=== PATIENT | male | born 1985 | race Caucasian/White ===

== ENCOUNTER 2025-11-05 20:14 | Emergency (ER) | payer OTHER, SELFPAY ==
[2025-11-05 20:21] VITALS: BP 144/96; PULSE 109; RESP 18; TEMP 36.5; O2SAT 95; BMI 33.8
--- NOTE | 2025-11-06 02:04 | ED.BURNSMOKE ---
HPI - Burn/Smoke Inhalation General Chief complaint: Burn/Smoke Inhalation Stated complaint: Hot water spilled on Lt side of head Time Seen by Provider: 11/06/25 01:36 Source: patient Mode of arrival: Ambulatory History of Present Illness HPI Narrative: 40-year-old gentleman no significant medical history was at work today reaching down for some tools in a drawer underneath a soup pot with boiling water underneath it. The soup in the water tipped over and landed on his left ear. He felt bit of fluid go into his ear. Immediately stood up rinse the entire area with cool water. Actually finished his shift and then came to the emergency department for further evaluation. He states that it hurts slightly but isn't interested in any type of pain medication. He said he heard some crackly noises in his ear initially but otherwise is doing well. Related Data Home Medications ?Medication ?Instructions ?Recorded ?Confirmed multivitamin (Multiple Vitamins 1 tab PO QDAY ##0 10/16/17 01/23/22 tablet) Previous Rx's ?Medication ?Instructions ?Recorded clotrimazole 1 % topical cream 1 applic topical BID #90 grams 01/23/22 (Antifungal (clotrimazole)) Allergies Allergy/AdvReac Type Severity Reaction Status Date / Time TIDE Allergy Mild UNKNOWN Uncoded 02/19/18 13:03 Bee Venom Allergy Unknown UNKNOWN Uncoded 02/19/18 13:03 Review of Systems Review of Systems Narrative: Pertinent positive and negative findings as per HPI Patient History Family History Sister Age: 42 Mental health problem Smoking Status: Never smoker Exam Initial Vital Signs Initial Vital Signs: Vital Signs Temperature 97.7 F 11/05/25 20:21 Pulse Rate 109 H 11/05/25 20:21 Respiratory Rate 18 11/05/25 20:21 Blood Pressure 144/96 H 11/05/25 20:21 Pulse Oximetry 95 11/05/25 20:21 Oxygen Delivery Method Room Air 11/05/25 20:21 General: Alert appropriate in no acute distress HEENT: Left ear has superficial bates difficult to tell if there 1st or 2nd degree at this point on the upper posterior part of the helix. There is some on the inner helix and just under the tragus. There is no significant erythema into the internal canal and the tympanic membrane is completely normal. No other skin of the head or neck is involved Respiratory: Able to speak in full sentences, no obvious respiratory distress Skin: No obvious rashes, warm and dry Neurologic: Grossly intact no obvious asymmetries or abnormalities Psych: appropriate insight and affect, cooperative Course Vital Signs Vital signs: Vital Signs - 8 hr 11/05/25 20:21 Temperature 97.7 F Pulse Rate 109 H Respiratory Rate 18 Blood Pressure 144/96 H Pulse Oximetry 95 Oxygen Delivery Method Room Air MDM - Burn/Smoke Inhalation MDM Narrative Medical decision making narrative: 40-year-old gentleman with superficial bates to portions of his left ear. It has been 8 hours since the initial injury and he has not yet developing any blistering. Of the areas that are most erythematous I have suggested that he keep triple antibiotic ointment on to keep the area moist until it begins to heal. There was not appear to be any involvement of the external canal or tympanic membrane. There is no hearing loss or hearing changes. No other skin is involved. Discussed anticipated course of resolution and discussed any complications with infections what that might look like and went to return to the emergency department. L and I forms are filled out and patient is discharge Discharge Plan Departure Patient Disposition: Home Clinical Impression: Burn of ear Qualifiers: Encounter type: initial encounter Laterality: left Burn degree: superficial (1st degree) Qualified Code(s): T20.112A - Burn of first degree of left ear [any part, except ear drum], initial encounter Instructions: DI for Bates Activity Restrictions/Additional Instructions: Thank you for coming in today You definitely have some superficial bates to the back and the front of your ear. There does not appear to be any damage in the ear canal or to the tympanic membrane itself. Please keep antibiotic ointment on the tender areas for 2-3 days until there obviously healing and no longer hurting. If you are noticing any signs of swelling, inflammation, new drainage or smell from the area this is not normal and does need to be re-evaluated Prescriptions: No Action clotrimazole [Antifungal (clotrimazole)] 1 % cream 1 applic topical BID Qty: 90 0RF multivitamin [Multiple Vitamins] 1 EACH tablet 1 tab PO QDAY Qty: 0 Referrals: Miscellaneous,Doctor, MD [Primary Care Provider, Medical] Stand Alone Forms: Patient Portal/API
[2025-11-06] MEDS: BACITRACIN OINT 0.9 GM PCKT 1 APPLIC TOP (02:19)
[2025-11-06 02:30] VITALS: BP 136/92; PULSE 83; RESP 17; O2SAT 96
== END 2025-11-06 02:31 | disposition home or self-care (01) ==
PROVIDERS: Emergency Provider Emergency Medicine
DX: T20.112A Burn of first degree of left ear [any part, except ear drum], initial encounter (principal); X12.XXXA Contact with other hot fluids, initial encounter
CPT/HCPCS: 99282